=== PATIENT | female | born 1985 | race Two or more races ===

== ENCOUNTER 2023-10-31 18:24 | Emergency (ER) | payer MEDICAID, OTHER ==
[~2023-10-31] VITALS: Ht 167.6 cm; Wt 97.4 kg
[2023-10-31 23:12] LABS: Basophils # (auto) 0 10 ^3/uL (0-0.2); Basophils % (auto) 0.6 % (0.0-2.0); Eosinophils # (auto) 0 10 ^3/uL (0-0.8); Eosinophils % (auto) 0.2 % (0.0-7.0); Hematocrit 33.7 % (36.0-46.0); Hemoglobin 11.3 g/dL (12.2-16.2); Lymphocytes # (auto) 1.9 10 ^3/uL (0.4-5.4); Lymphocytes % (auto) 23.2 % (10.0-50.0); Mean Corpuscular Hemoglobin 29.6 pg (28.0-32.0); Mean Corpuscular Hgb Conc. 33.6 g/dL (32.0-36.0); Monocytes # (auto) 0.5 10 ^3/uL (0-1.3); Monocytes % (auto) 5.8 % (0.0-12.0); Neutrophils # (auto) 5.8 10 ^3/uL (1.6-8.6); Neutrophils % (auto) 70.2 % (37.0-80.0); Nucleated Red Blood Cells % 0.1 %; Red Blood Cells 3.83 10^6/uL (4.0-5.20); Red Cell Distribution Width 15.4 % (11.8-14.3); White Blood Cell 8.2 10^3/uL (4.4-10.8)
[2023-10-31 23:34] LABS: Alanine Aminotransferase 103 U/L (7-40); Albumin 4.4 g/dL (3.2-4.8); Alkaline Phosphatase 115 U/L (46-116); Anion Gap 7 (5-15); Aspartate Aminotransferase 73 U/L (13-40); BUN/Creatinine Ratio 9.5 (10.0-20.0); Bilirubin, Total 0.3 mg/dL (0.2-1.0); Blood Urea Nitrogen 6 mg/dL (9-23); Calcium 9.8 mg/dL (8.7-10.4); Carbon Dioxide 23 mmol/L (20-30); Chloride 108 mmol/L (98-107); Glucose 107 mg/dL (74-106); Sodium 138 mmol/L (136-145); Total Protein 7.1 g/dL (5.7-8.2)
[2023-11-01] MEDS: ACETAMINOPHEN 500 MG TAB PO ONE (01:27)
[2023-11-01] MEDS: miSOPROStol 50 MCG per PRE-CUT 1/2 TAB PO ONE (02:30)
[2023-11-01] MEDS: SODIUM CHLORIDE 0.9% 1,000 ML IV ONE (03:19)
[2023-11-01] MEDS: cefTRIAXone 1GM/50ML D5W 50 ML IV ONE (03:28)
[2023-11-01] MEDS ORDERED: ACET-1304 PO (03:29)
[2023-11-01] MEDS ORDERED: IBUP-1456 PO (03:29)
[2023-11-01] MEDS ORDERED: CEPH500C PO (03:29)
[2023-11-01 04:13] VITALS: BP 113/63; PULSE 100; RESP 19; TEMP 98.6; O2SAT 97
== END 2023-11-01 04:29 | disposition home or self-care (01) ==
LOC: ER 18:24
DX: O72.2 Delayed and secondary postpartum hemorrhage (principal); Z79.1 Long term (current) use of non-steroidal anti-inflammatories (NSAID)
CPT/HCPCS: 36415; 76856; 80053; 85025; 96365; 99285; J0696